=== PATIENT | female | born 1995 | race African-American/Black ===

== ENCOUNTER 2021-06-22 19:27 | Emergency (ER) | payer BC ==
[~2021-06-22] VITALS: Ht 177.8 cm; Wt 88.0 kg
--- NOTE | 2021-06-22 19:50 | NUR ---
BIBS. R ABD PAIN STARTED THIS MORNING WORST IN THE PAST HOUR. [facility] DENIES N/V/D. PATIENT ALERT AND ORIENTED X3. AMBULATORY BUT BROUGHT IN BY WHEELCHAIR DUE TO THE PAIN. PLACED IN BED 16 ON MONITOR AWAITING MD OROZCO.
[2021-06-22] MEDS ORDERED: ONDANSETRON HCL/PF 4 MG/2 ML VIAL ONE (20:18)
[2021-06-22] MEDS ORDERED: MORPHINE SULFATE INJ 4 MG/ML DISP.SYRIN ONE ×2 (20:18→21:17)
--- NOTE | 2021-06-22 20:24 | NUR ---
BLOOD COLLECTED AND SENT TO LAB
[2021-06-22 20:27] LABS: BASOPHILS % (AUTO) 0.3 % (0.0-2.0); EOSINOPHILS % (AUTO) 0.2 % (0.0-6.0); HEMATOCRIT 39 % (33-45); HEMOGLOBIN 12.7 g/dL (11.5-14.8); LYMPHOCYTES # (AUTO) 0.7 K/uL (0.8-4.8); LYMPHOCYTES % (AUTO) 5.5 % (20.0-44.0); MEAN CORPUSCULAR HGB CONC 32 g/dl (31.0-36.0); MEAN CORPUSCULAR VOLUME 91 fL (82-100); MONOCYTES # (AUTO) 1.1 K/uL (0.1-1.30); MONOCYTES % (AUTO) 8.1 % (2.0-12.0); NEUTROPHILS # (AUTO) 11.2 K/uL (1.8-8.9); NEUTROPHILS % (AUTO) 85.9 % (43.0-81.0); PLATELET COUNT (AUTO) 273 K/uL (150-450); RED BLOOD CELL COUNT(AUTO) 4.32 MIL/uL (4.0-5.2); WHITE BLOOD COUNT (AUTO) 13.1 K/uL (4.3-11.0)
[2021-06-22 20:29] LABS: BILIRUBIN,URINE NEGATIVE (NEGATIVE); COLOR,URINE YELLOW (YELLOW); LEUKOCYTE ESTERASE ,URINE NEGATIVE (NEGATIVE); NITRITE, URINE NEGATIVE (NEGATIVE); PH,URINE 8.5 (5.0-8.0); PROTEIN,URINE NEGATIVE (NEGATIVE); UGLUCOSE NEGATIVE (NEGATIVE); UROBILINOGEN,URINE 0.2 EU/dL (0.2)
[2021-06-22] MEDS ORDERED: ONDANSETRON HCL/PF 4 MG/2 ML VIAL IVP ONE (20:30)
[2021-06-22] MEDS ORDERED: MORPHINE SULFATE INJ 2 MG/ML DISP.SYRIN IV ONE ×2 (20:30→21:30)
[2021-06-22 20:47] LABS: CALCIUM, SERUM 8.4 mg/dL (8.5-10.1); CREATININE 0.9 mg/dL (0.6-1.3); POTASSIUM 3.8 mmol/L (3.5-5.1)
[2021-06-22 20:52] LABS: ALBUMIN 3.4 g/dL (3.4-5.0); BILIRUBIN,DIRECT 0.1 mg/dL (0.0-0.2); BILIRUBIN,TOTAL 0.3 mg/dL (0.2-1.0); TOTAL PROTEIN, SERUM 7.7 g/dL (6.4-8.2)
[2021-06-22] MEDS ORDERED: IOHEXOL-300 100 ML VIAL IV ONE (20:56)
[2021-06-22] MEDS ORDERED: IV NS 0.9% 250 ML IV ONE (20:57)
[2021-06-22] MEDS ORDERED: CT SWABBABLE VALVE TRANS SET 1 EA INFUS.SET MC ONE (20:58)
[2021-06-22] MEDS ORDERED: KETOROLAC TROMETHAMINE INJ 30 MG/ML VIAL ONE (21:17)
--- NOTE | 2021-06-22 21:22 | NUR ---
PT BROUGHT TO CT AND BACK.
[2021-06-22] MEDS ORDERED: KETOROLAC TROMETHAMINE INJ 30 MG/ML VIAL IV ONE (21:30)
[2021-06-22] MEDS ORDERED: CIPR500T5 PO (21:50)
[2021-06-22] MEDS ORDERED: HYDR-4209 PO (21:50)
[2021-06-22] MEDS ORDERED: ONDA4TAB11 PO (21:50)
[2021-06-22] MEDS ORDERED: METR-147 PO (21:50)
[2021-06-22 21:57] VITALS: BP 135/83
--- NOTE | 2021-06-22 21:57 | NUR ---
IV removed. Catheter intact and site benign. Pressure and 4x4 applied to site. No bleeding noted.Patient discharged to home in stable condition. Written and verbal after care instructions given. Patient verbalizes understanding of instruction.
== END 2021-06-22 21:58 | disposition home or self-care (01) ==
LOC: ER 19:36
DX: K50.00 Crohn's disease of small intestine without complications (principal); Z79.891 Long term (current) use of opiate analgesic; Z79.899 Other long term (current) drug therapy
CPT/HCPCS: 36415; 74177; 80048; 80076; 81003; 83690; 84703; 85025; 85730; 96374; 96375; 96376; 99285; J1885; J2270 ×2; J2405; J7050; Q9967